=== PATIENT | female | born 1975 | race Caucasian/White ===

== ENCOUNTER 2018-09-17 09:59 | Day surgery (SDC) | payer BC ==
[~2018-09-17] VITALS: Ht 170.2 cm; Wt 93.6 kg
--- NOTE | ~2018-09-17 | OP ---
PATIENT NAME: FLACO DAVIDSON MEDICAL RECORD: [id number] :73 LOCATION:[facility] ADMISSION DATE: SURGEON: LUCIANO TRAN DO DATE OF OPERATION: 09/17/2018 PROCEDURE: Colonoscopy with biopsies and polypectomy. INDICATIONS FOR PROCEDURE: Generalized abdominal pain, diarrhea, and unintentional weight loss. SCOPE: Olympus video pediatric colonoscope. MEDICATIONS: Propofol 380 mg IV per anesthesia. WITHDRAWAL TIME: 7 minutes. ESTIMATED BLOOD LOSS: Minimal. COMPLICATIONS: None. FINDINGS: Informed consent was given. The patient was made comfortable with the above medication. After reaching an adequate level of sedation by slow IV push, the patient was placed on her left side. A digital rectal examination was performed and it was normal. The endoscope was then advanced under direct visualization through the rectum to the cecum and terminal ileum. The endoscope was slowly withdrawn and mucosa was carefully examined. The prep quality was excellent. There was a single polyp visualized on today's examination. It was located in the ascending colon. It was benign appearing and sessile and measured approximately 3 mm in diameter. It was removed using hot forceps in 1 piece and completely retrieved. There was evidence of mild diverticulosis in the distal descending and sigmoid colon. Retroflexion was performed in the rectum with normal appearing rectal wall. The endoscope was withdrawn from the patient. The patient tolerated the procedure well and there were no complications. IMPRESSION: 1. A single, ascending colon polyp. This was removed using hot forceps. 2. Mild diverticulosis of the distal descending and sigmoid colon. 3. Otherwise, normal colonoscopy. Random biopsies were taken throughout the colon with cold forceps to submit for histopathology and to rule out microscopic colitis. PLAN AND RECOMMENDATIONS: 1. Discharge home when recovery parameters are met. 2. Follow up biopsy specimen results. 3. High fiber diet. 4. Continue current medications. 5. Dicyclomine will be given for a trial to be taken as needed for loose stools or abdominal pain and cramping. 6. We will plan for a gastric emptying scan prior to an EGD based on upper digestive symptoms. TRANSINT:[id number] Voice Confirmation ID: [id number] DOCUMENT ID: [id number] OPERATIVE REPORT [id number] FLACO DAVIDSONLUCIANO DO CC: [id number] DICTATION DATE: 09/17/18 141 [employer]GER: 09/17/18 1614 [facility] 09/17/18 [facility] [address] [place] [address]
[2018-09-17 10:42] LABS: HEMOGLOBIN 12.8 g/dL (12-16); MCH 29.4 pg (26.0-34.0); MCHC 32.8 g/dL (31.0-37.0); MCV 89.7 fL (80.0-100.0); MEAN PLATELET VOLUME 10.5 fL (7.4-10.4); RBC 4.35 10x6/uL (4.00-5.40); RDW 13.2 % (11.5-14.5)
[2018-09-17 10:46] LABS: CALC OSMOLALITY 277 mosm/kg (275-300); CALCIUM 9.1 mg/dL (8.5-10.1); CARBON DIOXIDE 29.8 mmol/L (21.0-32.0); CHLORIDE - SERUM 106 mmol/L (98-107); CREATININE - SERUM 0.8 mg/dL (0.6-1.3); GLUCOSE 91 mg/dL (74-106); POTASSIUM - SERUM 3.5 mmol/L (3.5-5.1); SODIUM 140 mmol/L (136-145); UREA NITROGEN 11 mg/dL (7-18); eGFR NON AFRICAN AMERICAN 83 mL/min (90-120)
[2018-09-17] MEDS ORDERED: TRIAMT (10:58)
[2018-09-17] MEDS ORDERED: HCTZ (10:58)
[2018-09-17] MEDS ORDERED: SYNTHROID100 MCG PO (10:59)
[2018-09-17 11:07] VITALS: Ht 170.2 cm; Wt 93.6 kg
[2018-09-17] MEDS ORDERED: LEXAPRO20 MG PO (11:11)
[2018-09-17] MEDS ORDERED: XANAX2 MG PO (11:12)
--- NOTE | 2018-09-17 14:43 | NUR ---
[address] CHELSEA ANGEL.
== END 2018-09-17 15:45 | disposition home or self-care (01) ==
LOC: D.OPS 09:59
PROVIDERS: Anesthesiology; ATTEND Internal Medicine Gastroenterology
DX: K63.5 Polyp of colon (principal); K57.30 Diverticulosis of large intestine without perforation or abscess without bleeding; Z01.812 Encounter for preprocedural laboratory examination

== ENCOUNTER → 2018-10-04 11:13 | Outpatient (CLI) | payer BC ==
[2018-09-17 11:07] VITALS: BMI 32.3
[~2018-10-04 11:13] MED LIST: HCTZ; LEXAPRO20 MG PO; SYNTHROID100 MCG PO; TRIAMT; XANAX2 MG PO
== END | disposition home or self-care (01) ==
LOC: D.NM 08:00
PROVIDERS: ATTEND Internal Medicine Gastroenterology
DX: R10.84 Generalized abdominal pain (principal); R11.2 Nausea with vomiting, unspecified; R19.7 Diarrhea, unspecified

== ENCOUNTER 2018-11-21 07:39 | Day surgery (SDC) | payer BC ==
[~2018-11-21] VITALS: Ht 170.2 cm; Wt 89.4 kg
[2018-11-21 07:56] LABS: HEMOGLOBIN 12.6 g/dL (12-16); MCH 29.8 pg (26.0-34.0); MCHC 34.1 g/dL (31.0-37.0); MCV 87.5 fL (80.0-100.0); MEAN PLATELET VOLUME 10.6 fL (7.4-10.4); RBC 4.23 10x6/uL (4.00-5.40); RDW 14.1 % (11.5-14.5)
[2018-11-21 08:04] LABS: CALC OSMOLALITY 277 mosm/kg (275-300); CARBON DIOXIDE 28.1 mmol/L (21.0-32.0); CHLORIDE - SERUM 104 mmol/L (98-107); CREATININE - SERUM 0.8 mg/dL (0.6-1.3); GLUCOSE 98 mg/dL (74-106); POTASSIUM - SERUM 3.5 mmol/L (3.5-5.1); SODIUM 140 mmol/L (136-145); UREA NITROGEN 9 mg/dL (7-18); eGFR NON AFRICAN AMERICAN 83 mL/min (90-120)
[2018-11-21 08:39] VITALS: BP 133/80; Ht 170.2 cm; Wt 89.4 kg
--- NOTE | 2018-11-21 09:59 | NUR ---
0951 DR. CHELSEA ANGEL.
--- NOTE | 2018-11-21 17:26 | OP ---
PATIENT NAME: FLACO DAVIDSON MEDICAL RECORD: [id number] :73 LOCATION:[facility] ADMISSION DATE: SURGEON: LUCIANO TRAN DO DATE OF OPERATION: 11/21/2018 PROCEDURE: EGD with biopsies. INDICATIONS FOR PROCEDURE: GERD, nausea and vomiting, generalized abdominal pain, unintentional weight loss, diarrhea. SCOPE: Olympus video gastroscope. MEDICATIONS: Propofol 250 mg IV per anesthesia. ESTIMATED BLOOD LOSS: Minimal. COMPLICATIONS: None. FINDINGS: Informed consent was given. The patient was made comfortable with the above medication. After reaching an adequate level of sedation by slow IV push, the patient was placed on her left side. The endoscope was advanced under direct visualization through the mouth to the second portion of the duodenum with ease. The entire esophagus and GE junction appeared normal. The endoscope was advanced into the stomach and retroflexed to view the cardia, which appeared normal. Throughout the entire stomach, there were patchy areas of some slight congestion and erythema. Appearances were consistent with mild gastritis. Random cold forceps biopsies were taken in the antrum and incisura to submit for histopathology and to rule out the presence of H. pylori. The endoscope was advanced beyond the pylorus into the duodenum, which appeared normal down to the second portion. Cold forceps biopsies were taken to submit for histopathology. The endoscope was withdrawn back up into the mid esophagus where cold forceps biopsies were taken to rule out the presence of eosinophilic esophagitis. The endoscope was then withdrawn from the patient. The patient tolerated the procedure well and there were no complications. IMPRESSION: 1. Mild gastritis. 2. Otherwise, normal upper endoscopy. PLAN AND RECOMMENDATIONS: 1. Discharge home when recovery parameters are met. 2. Follow up biopsy specimen results. 3. GERD diet and reflux precautions. 4. We will provide a prescription for omeprazole 40 mg daily to be taken times 30 days. 5. The patient did have a gastric emptying scan, which was lower limits of normal. I have discussed eating smaller more frequent meals and limiting foods that are high in fat content or fiber. 6. If symptoms worsen or do not improve over the next 30 days, consider right upper quadrant ultrasound and possibly a PIPIDA to follow if that is normal. 7. Follow up in GI clinic in 1 month. TRANSINT:[id number] Voice Confirmation ID: [id number] DOCUMENT ID: [id number] OPERATIVE REPORT [id number] FLACO DAVIDSON,LUCIANO Espinoza DO at 1726 CC: [id number] DICTATION DATE: 11/21/18931 [employer]: 11/21/18939 [facility] 11/21/18 [facility] [address] [place] [address]
== END 2018-11-21 10:35 | disposition home or self-care (01) ==
LOC: D.OPS 07:39
PROVIDERS: Anesthesiology; ATTEND Internal Medicine Gastroenterology
DX: K29.70 Gastritis, unspecified, without bleeding (principal); K21.9 Gastro-esophageal reflux disease without esophagitis; Z01.812 Encounter for preprocedural laboratory examination

== ENCOUNTER → 2019-01-15 08:56 | Outpatient (CLI) | payer BC ==
[2018-11-21 08:39] VITALS: BMI 30.9
== END | disposition home or self-care (01) ==
LOC: D.US 01-10 10:00
PROVIDERS: ATTEND Internal Medicine Gastroenterology
DX: R10.11 Right upper quadrant pain (principal); R63.4 Abnormal weight loss